=== PATIENT | female | born 1960 | race Caucasian/White ===

== ENCOUNTER 2020-03-19 21:30 | Emergency (ER) | payer BC ==
[2020-03-19 21:57] VITALS: BP 148/82; PULSE 68
[2020-03-19] MEDS ORDERED: Bacitracin/Neomycin/Polymyxin B Oint 0.9 GM U/D Packet TOP ONE (22:00)
[2020-03-19] MEDS ORDERED: Lidocaine 1% with EPINEPHrine 1:100,000 20 ML MDV INJECT ONE (22:00)
--- NOTE | 2020-03-19 22:12 | EDM.PDOC ---
ED HPI GENERAL MEDICAL PROBLEM - General Chief Complaint: General Stated Complaint: fell-cut to left temporal area Time Seen by Provider: 03/19/20 21:50 Source of Information: Reports: Patient History Limitations: Reports: No Limitations - History of Present Illness INITIAL COMMENTS - FREE TEXT/NARRATIVE: Patient presents to ER with complaints of laceration to left mormon region. She was out with her dog and tripped going up the stairs on her deck. Denies loss of consciousness. Has mild headache. No nausea. No vision changes. no neck pain. Tetanus is up to date. Onset: Today, Sudden Duration: Minutes: Location: Reports: Face Quality: Reports: Burning Severity: Mild Context: Reports: Trauma Associated Symptoms: Reports: No Other Symptoms - Related Data Allergies Allergy/AdvReac Type Severity Reaction Status Date / Time opiates Allergy Stomach Uncoded 03/19/20 21:58 Ache Home Meds: Home Meds . [No Known Home Meds] 07/07/16 [History] Past Medical History - Past Health History Medical/Surgical History: Denies Medical/Surgical History Musculoskeletal History: Reports: Other (See Below) - Past Surgical History Female Surgical History: Reports: Section Musculoskeletal Surgical History: Reports: Other (See Below) Social & Family History - Tobacco Use Smoking Status *Q: Former Smoker Used Tobacco, but Quit: Yes Month/Year Tobacco Last Used: 3 - Caffeine Use Caffeine Use: Reports: Coffee - Recreational Drug Use Recreational Drug Use: No ED ROS GENERAL - Review of Systems Review Of Systems: See Below Constitutional: Denies: Fever, Chills, Malaise, Weakness, Decreased Appetite HEENT: Denies: Ear Discharge, Ear Pain, Nosebleed, Throat Pain Respiratory: Reports: No Symptoms Cardiovascular: Reports: No Symptoms Endocrine: Reports: No Symptoms GI/Abdominal: Reports: No Symptoms : Reports: No Symptoms Musculoskeletal: Reports: No Symptoms Skin: Reports: Wound ED EXAM, GENERAL - Physical Exam Exam: See Below Exam Limited By: No Limitations General Appearance: Alert, WD/WN, No Apparent Distress Ears: Normal External Exam, Normal TMs Nose: Normal Inspection, Normal Mucosa, No Blood Throat/Mouth: Normal Inspection, Normal Oropharynx Head: Normocephalic Neck: Normal Inspection, Supple, Non-Tender, Full Range of Motion Respiratory/Chest: Lungs Clear Cardiovascular: Regular Rate, Rhythm Neurological: Alert, Oriented, CN II-XII Intact, Normal Cognition, Normal Gait, Normal Reflexes, No Motor/Sensory Deficits Skin Exam: Warm, Wound/Incision (1 cm irregular laceration to left mormon. 2 superficial abrasions noted to cheek.) ED GENERAL MEDICAL PROCEDURES - Laceration/Wound Repair Left Face Lac/wound length in cm: 1 Appearance: Linear, Irregular, Clean Anesthetic Type: Local Local Anesthesia - Lidocaine (Xylocaine): 1% with EPI Local Anesthetic Volume: 2cc Skin Prep: Other (saf-clens) Exploration/Debridement/Repair: Wound Explored, Explored to Base Closed with: Sutures Suture Size: 6-0 # of Sutures: 3 Suture Type: Nylon, Interrupted, Simple Sterile Dressing Applied: Nurse Tetanus Status Addressed: Yes Complications: No Course - Vital Signs Last Recorded V/S: Last Vital Signs Temp 97 F 03/19/20 21:34 Pulse 68 03/19/20 21:34 Resp 18 03/19/20 21:34 BP 148/82 H 03/19/20 21:34 Pulse Ox 97 03/19/20 21:34 - Orders/Labs/Meds Meds: Medications Discontinued Medications Generic Name Dose Route Start Last Admin Trade Name Astrid PRN Reason Stop Dose Admin Lidocaine/Epinephrine 20 ml 03/19/20 22:00 03/19/20 22:03 Xylocaine 1% With Epinephrine 1:100,000 INJECT 03/19/20 22:01 20 ml ONETIME ONE Administration Neomycin/Polymyxin/Bacitracin 1 each 03/19/20 22:00 03/19/20 22:03 Triple Antibiotic Oint TOP 03/19/20 22:01 1 each ONETIME ONE Administration Departure - Departure Time of Disposition: 22:11 Disposition: Home, Self-Care 01 Condition: Good Clinical Impression: Laceration - Discharge Information *PRESCRIPTION DRUG MONITORING PROGRAM REVIEWED*: No *COPY OF PRESCRIPTION DRUG MONITORING REPORT IN PATIENT SOCO: No Instructions: Laceration Care, Adult Referrals: Bonita New PA-C [Primary Care Provider] - Forms: ED Department Discharge Additional Instructions: 1. Keep wound clean and dry 2. Neosporin/triple antibiotic ointment daily for 3 days, after can leave open to air 3. Wound care instructions 4. Suture removal in 5 days 5. Call with any questions or concerns. Sepsis Event Note (ED) - Evaluation Sepsis Screening Result: No Definite Risk - Focused Exam Vital Signs: Vital Signs Temp Pulse Resp BP Pulse Ox 03/19/20 21:34 97 F 68 18 148/82 H 97
== END 2020-03-19 22:20 | disposition home or self-care (01) ==
LOC: CC.ED 21:30
DX: S01.81XA Laceration without foreign body of other part of head, initial encounter (principal); Z88.5 Allergy status to narcotic agent; Z87.891 Personal history of nicotine dependence; W10.9XXA Fall (on) (from) unspecified stairs and steps, initial encounter
CPT/HCPCS: 12011; 99282